=== PATIENT | female | born 1960 | race African-American/Black ===

== ENCOUNTER 2021-11-07 15:03 | Outpatient (RCR) | payer OTHER ==
[~2021-11-07 15:03] MED LIST: LIDOCAINE VISC 2% SOLN 15 ML UDC ONE
[2021-11-07] MEDS ORDERED: LIDOCAINE VISC 2% SOLN 15 ML UDC ONE (15:59)
[2021-11-07] MEDS ORDERED: MUPIROCIN 2% OINT 22 GM TUBE ONE (15:59)
== END 2021-11-16 ==
LOC: WCC 15:03
PROVIDERS: ATTEND Internal Medicine Infectious Disease
DX: T81.89XA Other complications of procedures, not elsewhere classified, initial encounter (principal); M96.89 Other intraoperative and postprocedural complications and disorders of the musculoskeletal system; E11.628 Type 2 diabetes mellitus with other skin complications; I82.409 Acute embolism and thrombosis of unspecified deep veins of unspecified lower extremity; M1A.9XX0 Chronic gout, unspecified, without tophus (tophi); I10 Essential (primary) hypertension; E78.5 Hyperlipidemia, unspecified
CPT/HCPCS: 36415; 82948

== ENCOUNTER 2021-11-21 10:51 | Outpatient (RCR) | payer OTHER | END 2021-12-17 | LOC: WCC 10:51 | PROVIDERS: ATTEND Internal Medicine Infectious Disease | DX: T81.89XA Other complications of procedures, not elsewhere classified, initial encounter (principal); M96.89 Other intraoperative and postprocedural complications and disorders of the musculoskeletal system; E11.628 Type 2 diabetes mellitus with other skin complications; I82.409 Acute embolism and thrombosis of unspecified deep veins of unspecified lower extremity; M1A.9XX0 Chronic gout, unspecified, without tophus (tophi); I10 Essential (primary) hypertension; E78.5 Hyperlipidemia, unspecified ==